=== PATIENT | male | born 1980 | race Caucasian/White ===

== ENCOUNTER 2018-07-29 06:28 | Emergency (ER) | payer OTHER, SELFPAY ==
[2018-07-29] MEDS ORDERED: Bupivacaine 0.5% 10 ML VIAL ONE (08:10)
[2018-07-29] MEDS ORDERED: Lidocaine 1% (PF) 30 ML VIAL ONE (08:10)
[2018-07-29] MEDS ORDERED: Metoclopramide HCl 10 MG/2 ML VIAL ONE (08:13)
[2018-07-29] MEDS ORDERED: Bacitracin Zinc 1 Packet ONE (09:22)
--- NOTE | 2018-07-29 09:24 | RAD ---
RIGHT INDEX DIGIT RADIOGRAPHS 3 VIEWS: Date: 07/29/18 PROVIDED CLINICAL HISTORY: Laceration. FINDINGS: No evidence for fracture or other acute osseous abnormality. No evidence for radiopaque foreign body within the soft tissues. IMPRESSION: As above. POS: OFF
== END 2018-07-29 09:36 ==
LOC: EEVIPCON 06:28 → ERS 06:28
DX: S61.210A Laceration without foreign body of right index finger without damage to nail, initial encounter (principal); W26.8XXA Contact with other sharp object(s), not elsewhere classified, initial encounter
CPT/HCPCS: 12001; J0500; J2001; J2765; J3490